=== PATIENT | female | born 1980 | race Caucasian/White ===

== ENCOUNTER 2024-07-07 15:47 | Emergency (ER) | payer SELFPAY | END 2024-07-07 17:28 | disposition home or self-care (01) | LOC: CSHERS 15:47 | DX: S93.601A Unspecified sprain of right foot, initial encounter (principal); F90.9 Attention-deficit hyperactivity disorder, unspecified type; F17.210 Nicotine dependence, cigarettes, uncomplicated; Z79.899 Other long term (current) drug therapy; X50.1XXA Overexertion from prolonged static or awkward postures, initial encounter | CPT/HCPCS: 99283 ==